=== PATIENT | female | born 1970 | race African-American/Black ===

== ENCOUNTER 2016-11-20 | Emergency (ER) | payer OTHER | END 2016-11-20 17:24 | disposition left against medical advice (07) | DX: Z53.21 Procedure and treatment not carried out due to patient leaving prior to being seen by health care provider (principal) ==

== ENCOUNTER 2018-10-02 12:39 | Day surgery (SDC) | payer OTHER ==
[2018-10-02] MEDS ORDERED: LACTATED RINGERS 1,000 ML IV ONE ×2 (13:30→17:47)
--- NOTE | 2018-10-02 15:21 | ANESTHESIA ---
Pre-Anesthesia VS, & Labs - Diagnosis Abnormal uterine bleeding - Procedure Myosure hysteroscopy, D&C, IUD placement Vital Signs: Temp Pulse Resp BP Pulse Ox 36.8 C 67 16 129/68 99 10/02/18 13:12 10/02/18 13:12 10/02/18 13:12 10/02/18 13:12 10/02/18 13:12 Height 5 ft 5 in Weight (kg) 73.94 kg - NPO >8 hours - Is Patient ?: No (tubal ligation) Home Medications and Allergies Home Medications: Ambulatory Orders Pnv No.121/Iron/Folic Acid [ Multivitamin Tablet] 1 each PO 09/24/18 Loratadine [Allergy Relief] 10 mg PO DAILY 08/12/16 Pnv No.121/Iron/Folic Acid [ Multivitamin Tablet] 1 each PO 09/24/18 Allergies/Adverse Reactions: Allergies Allergy/AdvReac Type Severity Reaction Status Date / Time No Known Drug Allergies Allergy Verified 09/24/18 16:09 Anes History & Medical History - Anesthetic History Anesthesia Complications: reports: No previous complications Family history of Anesthesia Complications: Denies Family history of Malignant Hyperthermia: Denies - Medical History Cardiovascular: reports: None Pulmonary: reports: None Gastrointestinal: reports: None Urinary: reports: Other Musculoskeletal: reports: None Endocrine/Autoimmune: reports: None Skin: reports: None Smoking Status: Never smoker - Surgical History Gynecologic: Tubal ligation Exam General: Alert, Oriented x3, Cooperative, No acute distress Dental: WNL Mouth Openin Fingerbreadth Neck Mobility: Normal Mallampati classification: I Thyromental Distance: 4-6 cm Respiratory: Lungs clear, Normal breath sounds, No respiratory distress Cardiovascular: Regular rate Neurological: Normal speech Mental/Cognitive Status: Alert/Oriented X3 Cognitive Status: Within normal limits Plan Anesthesia Type: General Consent for Procedure(s) Verified and Reviewed: Yes Code Status: Attempt Resuscitation ASA classification: 1-Healthy patient Is this case an emergency?: No
[2018-10-02] MEDS ORDERED: VASOPRESSIN 20 UNIT/ML VIAL ONE (16:05)
[2018-10-02] MEDS ORDERED: PROPOFOL 200 MG/20 ML VIAL IVP ONE (17:02)
[2018-10-02] MEDS ORDERED: fentaNYL 100 MCG/2 ML VIAL IVP ONE (17:02)
[2018-10-02] MEDS ORDERED: ONDANSETRON 4 MG/2 ML VIAL IVP ONE (17:02)
[2018-10-02] MEDS ORDERED: MIDAZOLAM 2 MG/2 ML VIAL IVP ONE (17:02)
[2018-10-02] MEDS ORDERED: LIDOCAINE-MPF 2% 5 ML VIAL IM ONE (17:02)
[2018-10-02] MEDS ORDERED: KETOROLAC 30 MG/ML VIAL IVP ONE (17:02)
[2018-10-02] MEDS ORDERED: DEXAMETHASONE 4 MG/ML VIAL IVP ONE (17:02)
[2018-10-02] MEDS ORDERED: HYDROmorphone 1 MG/ML CARPUJECT IVP ONE (17:02)
[2018-10-02] MEDS: HYDROmorphone 1 MG/ML CARPUJECT ONE ×2 (18:07→18:16)
[2018-10-02] MEDS ORDERED: ACETAMINOPHEN 1,000 MG/100 ML 100 ML IV ONE (18:10)
--- NOTE | 2018-10-02 18:13 | OPERATIVE REPORT ---
Operative Report - General Procedure Date: 10/02/18 Planned Procedure: Hysteroscopy, fractional D&C, Myosure, Mirena placement Pre-Op Diagnosis: Abnormal uterine bleeding Procedure Performed: The patient was brought to the operating room where she was placed supine on the operating table and given general oroendotracheal anesthesia. She was then placed in low lithotomy stirrups and prepped and draped in the usual sterile fashion. A time-out was performed. An exam under anesthesia showed the uterus to be upper limits of normal size and retroverted. The adnexa were benign. A speculum was placed in the patient's vagina and 40 ml of a vasopressin solution was injected in a paracervical block. A single tooth tenaculum was applied. The uterus sounded to 9 cm. The cervix was dilated to a 6 FR Hegar dilator. A 0 degree hysteroscope was inserted into the uterine cavity, but there was too much debris to be able to adequately visualize internal anatomy. Endocervical curettings were obtained on a Telfa pad. Endometrial curettings were obtained on a second Telfa pad. Adequacy of curettage was checked with a Amando stone forcep. The hysteroscope was reinserted and visualization was better. A fibroid was seen in the right fundus. The Myosure device was used to shave it down to the level of the surrounding myometrium. A Mirena IUD was placed and the string shortened to 3 cm. Instruments were removed from the vagina and the patient was taken to the recovery room in stable condition. Post Op Diagnosis: [place] - Procedure Note Primary Surgeon: Orestes Mera Secondary Surgeon: Courtney Carpio Anesthesia Technique: General ET tube Pathology: Endocervical curettings Endometrial curettings fibroid shavings Estimated Blood Loss (mL): 10 Complications: none
[2018-10-02] MEDS ORDERED: HYDROcod/ACETAM 5/325 MG TABLET PO STA (18:20)
[2018-10-02] MEDS ORDERED: HYDROcod/ACETAM 5/325 MG TABLET PO PRN (18:30)
[2018-10-02] MEDS ORDERED: HYDROcod/ACETAM 5/325 MG TABLET ONE (19:01)
[2018-10-02 19:35] VITALS: BP 122/70
== END 2018-10-02 12:40 | disposition home or self-care (01) ==
LOC: SDS 12:39
PROVIDERS: ATTEND Obstetrics & Gynecology
PROC: 0UH97HZ Insertion of Contraceptive Device into Uterus, Via Natural or Artificial Opening (ICD-10-PCS; 2018-10-02)
PROC: 0UB98ZZ Excision of Uterus, Via Natural or Artificial Opening Endoscopic (ICD-10-PCS; principal; 2018-10-02 14:15)
DX: N92.0 Excessive and frequent menstruation with regular cycle (principal); D25.0 Submucous leiomyoma of uterus; D50.9 Iron deficiency anemia, unspecified; Z98.51 Tubal ligation status
CPT/HCPCS: 58300; 58561; A9270; J0131; J1170; J7120